=== PATIENT | male | born 1990 | race Caucasian/White ===

== ENCOUNTER 2024-12-06 17:45 | Emergency (ER) | payer OTHER | END 2024-12-06 19:31 | LOC: ERS 17:45 → EEVIPCON 17:45 → ERS 19:31 | DX: S01.511A Laceration without foreign body of lip, initial encounter (principal); S00.03XA Contusion of scalp, initial encounter; S20.312A Abrasion of left front wall of thorax, initial encounter; Y04.8XXA Assault by other bodily force, initial encounter; Y92.149 Unspecified place in prison as the place of occurrence of the external cause | CPT/HCPCS: 99284 ==